=== PATIENT | female | born 1980 | race Two or more races ===

== ENCOUNTER 2020-03-23 17:29 | Emergency (ER) | payer BC ==
[2020-03-23 17:43] VITALS: BP 125/75; PULSE 88; TEMP 98.6; BMI 24.1
[2020-03-23 19:30] LABS: BASO % 0.8 % (0-2.0); EOS % 1.3 % (0-4.5); HEMATOCRIT 42.8 % (32.4-45.2); HEMOGLOBIN 14.2 GM/dL (10.7-15.3); LYMPH % 15.8 % (8-40); MCH 30.6 pg (25.7-33.7); MCHC 33.3 g/dl (32.0-36.0); MEAN CELL VOLUME 91.8 fl (80-96); MONO % 4.8 % (3.8-10.2); NEUT % 77.3 % (42.8-82.8); PLATELET COUNT 218 K/MM3 (134-434); RBC 4.66 M/mm3 (3.60-5.2); RDW 12.4 % (11.6-15.6); WHITE BLOOD COUNT 8.8 K/mm3 (4.0-10.0)
[2020-03-23 19:49] LABS: CHLORIDE 106 mmol/L (98-107); POTASSIUM 4.2 mmol/L (3.5-5.1); SODIUM 138 mmol/L (136-145)
[2020-03-23 19:51] LABS: CALCIUM 9.3 mg/dL (8.5-10.1)
[2020-03-23 19:52] LABS: ALBUMIN 4.4 g/dl (3.4-5.0); ANION GAP 4 MMOL/L (8-16); BLOOD UREA NITROGEN 15.3 mg/dL (7-18); CO2 28 mmol/L (21-32); GLUCOSE,RANDOM 83 mg/dL (74-106)
[2020-03-23 19:55] LABS: CREATININE 0.8 mg/dL (0.55-1.3); SGOT/AST 14 U/L (15-37); SGPT/ALT 17 U/L (13-61)
[2020-03-23 19:56] LABS: BILIRUBIN,TOTAL 0.4 mg/dL (0.2-1)
[2020-03-23 19:57] LABS: TOT PROT 7.4 g/dl (6.4-8.2)
[2020-03-23 19:58] LABS: ALK PHOS 65 U/L (45-117)
== END 2020-03-23 20:49 | disposition home or self-care (01) ==
LOC: JER 17:29
DX: S13.4XXA Sprain of ligaments of cervical spine, initial encounter (principal)
CPT/HCPCS: 36415; 71046-TC-FY; 80053; 82550; 84484; 84703; 85025; 85379; 93005; 93010; 99285-25

== ENCOUNTER 2022-05-20 17:19 | Emergency (ER) | payer BC ==
[2022-05-20 18:08] VITALS: BP 139/75; PULSE 98; RESP 16; TEMP 97.8; BMI 21.9
[2022-05-20] MEDS ORDERED: DIPHTH,PERTUSS(ACELL),TET 0.5 ML DISP.SYRIN IM ONE ×2 (18:58→19:06)
[2022-05-20] MEDS ORDERED: ACETAMINOPHEN 500 MG TABLET (FP) PO ONE (19:53)
[2022-05-20] MEDS ORDERED: ACETAMINOPHEN 500 MG TABLET (FP) ONE (19:58)
[2022-05-20] MEDS ORDERED: FAMOTIDINE 20 MG TABLET ONE (20:08)
== END 2022-05-20 20:12 | disposition home or self-care (01) ==
LOC: JERFT 17:19
PROC: 0HQGXZZ Repair Left Hand Skin, External Approach (ICD-10-PCS; principal; 2022-05-20)
PROC: 3E0234Z Introduction of Serum, Toxoid and Vaccine into Muscle, Percutaneous Approach (ICD-10-PCS; 2022-05-20)
DX: S61.311A Laceration without foreign body of left index finger with damage to nail, initial encounter (principal); W26.0XXA Contact with knife, initial encounter
CPT/HCPCS: 73140-TC-LT-FY; 90715; 99284-25

== ENCOUNTER 2024-12-13 09:23 | Emergency (ER) | payer OTHER, BC ==
[2024-12-13 09:29] VITALS: BP 105/63; PULSE 74; RESP 18; TEMP 98.3; BMI 24.5
[2024-12-13] MEDS ORDERED: ACETAMINOPHEN 500 MG TABLET (FP) ONE (09:55)
[2024-12-13] MEDS: ACETAMINOPHEN 500 MG TABLET (FP) PO ONE (09:59)
== END 2024-12-13 11:33 | disposition home or self-care (01) ==
LOC: JER 09:23 → JERFT 09:23
DX: R51.9 Headache, unspecified (principal); M54.2 Cervicalgia; M25.531 Pain in right wrist; V87.7XXA Person injured in collision between other specified motor vehicles (traffic), initial encounter; Y92.410 Unspecified street and highway as the place of occurrence of the external cause
CPT/HCPCS: 70450-TC; 72125-TC; 73110-TC-RT-FY; 73130-TC-RT-FY; 99284-25